=== PATIENT | female | born 1975 | race Caucasian/White ===

== ENCOUNTER 2020-09-16 12:35 | Inpatient (IN) | payer OTHER, SELFPAY ==
[2020-09-16] VITALS (24 sets, daily range): BP systolic 87–132; BP diastolic 53–87; PULSE 88–113; RESP 16–24; TEMP 36.7–38; O2SAT 78–100; BMI 22.0
--- NOTE | ~2020-09-16 | XR_ITS ---
EXAMINATION: XR chest 2V DATE: 09/16/2020 17:06 INDICATION: Fever. Low abdominal pain. TECHNIQUE: Frontal and lateral views of the chest were obtained. COMPARISON: CT abdomen and pelvis 09/16/2020 FINDINGS: The chest demonstrates clear lungs without pneumonia, pleural effusion, or pneumothorax. Th e heart size is normal. IMPRESSION: 1. No acute cardiopulmonary disease. Reviewed, dictated and finalized at location A.
--- NOTE | ~2020-09-16 | CT_ITS ---
EXAMINATION: CT abdomen pelvis wo/w con DATE: 09/17/2020 14:14 INDICATION: Left kidney mass. Left flank pain. TECHNIQUE: Computed tomography (CT) of the abdomen and pelvis was performed without and with 100 mL O mnipaque 350 intravenous contrast. Automated exposure control and iterative reconstruction technique were employed. The dose-length product was 406.51 mGy-cm. COMPARISON: CT abdomen and pelvis 09/16/2020 FINDINGS: The visualized portions of the lung bases demonstrate mild atelectasis. No pleural effusion . The heart size is normal. No pericardial effusion. The liver, gallbladder, spleen, pancreas, and ad renal glands are normal. There are simple cysts in the kidneys measuring up to 19 mm on the left. The re are 3 mm and 2 mm stones in left kidney. There is a 2.0 cm cystic mass in left kidney with hypoenh ancing margin and adjacent fat stranding, consistent with an abscess. There are no dilated loops of b owel. The appendix is normal. There is trace pelvic ascites. There are no pathologically enlarged lym ph nodes. There is mild lumbar spondylosis. IMPRESSION: 1. 2.0 cm left kidney abscess. 2. Small nonobstructing left kidney stones. Reviewed, dictated and finalized at location A.
--- NOTE | ~2020-09-16 | US_ITS ---
EXAMINATION: US venous doppler UE RT DATE: 09/16/2020 15:53 INDICATION: Right upper limb swelling. TECHNIQUE: Grayscale ultrasound images without and with compression and Doppler ultrasound images of the right upper extremity veins were obtained. COMPARISON: None. FINDINGS: The visualized portions of the right internal jugular vein, subclavian vein, axillary vein, brachial veins, basilic vein, radial vein, and ulnar vein are patent. There is thrombus in the right cephalic vein. IMPRESSION: 1. No deep venous thrombosis. 2. Thrombus in the right cephalic vein, which is a superficial vein. Reviewed, dictated and finalized at location A.
--- NOTE | ~2020-09-16 | CT_ITS ---
EXAMINATION: CT abdomen pelvis w con DATE: 09/16/2020 16:09 INDICATION: Left flank pain. TECHNIQUE: Computed tomography (CT) of the abdomen and pelvis was performed with 100 mL Omnipaque 350 intravenous contrast. Automated exposure control and iterative reconstruction technique were employe d. The dose-length product was 296.76 mGy-cm. COMPARISON: None. FINDINGS: The visualized portions of the lung bases demonstrate mild atelectasis. No pleural effusion . The heart size is normal. No pericardial effusion. The liver, gallbladder, spleen, pancreas, and ad renal glands are normal. There are cysts in the kidneys measuring up to 19 mm on the left. There is f at stranding around a 19 mm mass in left kidney. There is a 2 mm stone in left kidney. There are no d ilated loops of bowel. The appendix is normal. There are no pathologically enlarged lymph nodes. Ther e is no free intraperitoneal fluid. There is mild lumbar spondylosis. IMPRESSION: 1. Fat stranding around a 19 mm mass of left kidney, likely a ruptured hemorrhagic cyst. Abdomen CT w ithout and with contrast is recommended to exclude neoplasm. 2. 2 mm nonobstructing left kidney stone. Reviewed, dictated and finalized at location A. IMPRESSION: 1. Fat stranding around a 19 mm mass of left kidney, likely a ruptured hemorrha gic cyst. Abdomen CT without and with contrast is recommended to exclude neopla sm. 2. 2 mm nonobstructing left kidney stone.
[2020-09-16 13:07] LABS: Basophils Percent Auto 0.2 % (0.2-1.2); Eosinophils Absolute Auto 0.1 K/mm3 (0-0.3); Eosinophils Percent Auto 1.2 % (0-4.4); Hematocrit 38.5 % (37.0-47.0); Hemoglobin 13.1 g/dL (12.0-15.0); Immature Granulocyte Absolute 0.04 K/mm3 (0.00-0.031); Immature Granulocyte Percent A 0.3 % (0-0.5); Lymphocytes Percent Auto 16.3 % (18.3-44.2); Mean Corpuscular Hemoglobin 31.2 pg (26-34); Mean Corpuscular Volume 91.7 fl (80-100); Mean Platelet Volume 9.3 fl (7.4-10.4); Monocytes Absolute Auto 0.9 K/mm3 (0.1-0.6); Neutrophils Absolute Auto 8.6 K/mm3 (1.3-6.7); Platelet Count Result 336 k/mm3 (150-375); White Blood Count 11.7 K/mm3 (4.5-10.0)
[2020-09-16 13:17] LABS: Anion Gap 10 mmol/L (8-16); Blood Urea Nitrogen 8 mg/dL (7-17); Calcium 9.2 mg/dL (8.4-10.2); Carbon Dioxide 28 mmol/L (22-30); Chloride 101 mmol/L (98-107); Estimated CRCL calculation 82 ml/min; Estimated Glomerular Filt Rate > 60; Glucose 108 mg/dL (65-105); Potassium 3.1 mmol/L (3.4-5.0); Sodium 139 mmol/L (137-145)
[2020-09-16 13:26] LABS: Add Urine Microscopic? YES; Appearance Urine Clear (Clear); Bilirubin Urine Negative (Negative); Blood Urine Negative (Negative); Color Urine Yellow (Yellow); Glucose Urine UA Negative (Negative); Ketones Urine Negative (Negative); Leukocyte Esterase Ur Trace LEU/UL (Negative); Mucus Urine Heavy /lpf; Nitrate Urine Negative (Negative); Protein Urine 1+ mg/dL (Negative); Squamous Epithelial Cell Urine Few /hpf (Few); WBC Urine 21-30 /hpf
--- NOTE | 2020-09-16 14:59 | ED.ABDPAIN ---
HPI - Abdominal Pain General Chief Complaint: Abdominal Pain Stated Complaint: Left Flank Pain, Right Arm pain Time Seen by Provider: 09/16/20 14:59 Source: patient Mode of arrival: ambulatory Limitations: no limitations History of Present Illness HPI narrative: Patient is a 45-year-old female who presents for evaluation of fever, general malaise. Patient also reporting abdominal pain, nausea and vomiting over the past 48 hours. Reporting pain in the lower left abdomen with radiation to the left flank. She has a history of nephrolithiasis but has never required any surgical procedures or stenting. Patient also states she has had low-grade fever, dysuria as well as constipation. No hematuria. She denies abdominal distention. Denies any chest pain, cough or shortness of breath. Patient also states that she used methamphetamine at a democrat a few nights ago, it was injected with a clean needle into her right arm, patient does have some swelling, redness and pain in that right upper extremity. Denies history of other drug use. Related Data Home Medications Medication Instructions Recorded Confirmed acyclovir 09/16/20 alprazolam 09/16/20 hydroxyzine HCl 09/16/20 Allergies Allergy/AdvReac Type Severity Reaction Status Date / Time No Known Allergies Allergy Verified 09/16/20 14:59 Review of Systems Review of Systems: Narrative: CONSTITUTIONAL: Reports fever EYES: Denies visual changes, redness, or discharge. ENT: Denies rhinorrhea, congestion, sore throat, or otalgia. CARDIOVASCULAR: Denies chest pain, palpitations, or edema. RESPIRATORY: Denies cough or dyspnea. GASTROINTESTINAL: Reports left-sided abdominal pain, nausea, vomiting and constipation GENITOURINARY: Reports dysuria SKIN: Reports swelling and redness to right upper extremity MUSCULOSKELETAL: Denies back pain, joint pain, or myalgia. NEUROLOGIC: Denies headache, numbness, or weakness. PSYCHIATRIC: History of anxiety although she states this has been well controlled, recently discontinued her Xanax [facility] Social History Social History (Updated 09/16/20 @ 15:31 by Ivanna Patterson MD) Smoking status: Current some day smoker Tobacco type: cigarettes and e-cigarettes/vaping Alcohol intake: current Substance use: current Substance use type: amphetamines Gender identity (if verbalized by the patient): Female Exam Narrative: Exam Narrative: GENERAL: Awake, alert, conversant HEAD: Normocephalic, atraumatic. EYES: PERRLA and EOMI. ENT: Nares clear, no rhinorrhea or epistaxis. Mucous membranes moist. NECK: Supple. CHEST: No respiratory distress, breathing even and non labored HEART: Tachycardic rate, sinus rhythm ABDOMEN:Non distended, mild left lower quadrant tenderness, positive left flank tenderness EXTREMITIES: Normal range of motion. No edema. SKIN: Warm, dry, right upper extremity induration, erythema just proximal to the right antecubital fossa, nonfluctuant, nondraining, puncture jennifer present, no ecchymoses. Neurovascularly intact. Radial pulse 2+. Intact sensation median, ulnar, radial nerve distribution. NEURO:No focal deficits. Alert and oriented x3 Course Vital Signs Vital signs: Vital Signs Temperature 38.0 C H 09/16/20 12:56 Pulse Rate 113 H 09/16/20 12:56 Respiratory Rate 18 09/16/20 12:56 Blood Pressure 132/87 09/16/20 12:56 Pulse Oximetry 100 09/16/20 12:56 Temperature 37.5 C 09/16/20 16:27 Pulse Rate 99 09/16/20 17:45 Respiratory Rate 17 09/16/20 17:45 Blood Pressure 104/77 09/16/20 16:46 Pulse Oximetry 100 09/16/20 17:45 MDM - Abdominal Pain MDM Narrative Medical decision making narrative: Patient is a 45-year-old female who presented for evaluation of left abdominal pain, left flank pain, dysuria, as well as redness to an injection site in the right upper extremity. At the time of assessment, patient is tachycardic and febrile. Given concern for sepsis, IV access was obtained a
--- NOTE | 2020-09-16 15:00 | ECG_ITS ---
Measurements Intervals Hartman Rate: 99 P: 68 MI: 119 QRS: 3 QRSD: 99 T: 66 QT: 348 QTc: 447 Interpretive Statements SINUS RHYTHM WITH SHORT MI INTERVAL POSSIBLE LEFT ATRIAL ENLARGEMENT INCOMPLETE RIGHT BUNDLE BRANCH BLOCK BASELINE ARTIFACT- I, III, AVL BORDERLINE ECG Electronically Signed On 09-16-2020 19:30:15 CDT by Artie Tatum D.O.
[2020-09-16] MEDS: SODIUM CHLORIDE 0.9% IV 1,800 ML/1,800 ML ML 999 ML IV CONT (15:21)
[2020-09-16 15:40] LABS: Lactic Acid Reflex 1.3 mmol/L (0.7-2.1)
[2020-09-16 17:22] LABS: Alanine Aminotransferase 22 U/L (4-35); Albumin Level 4.3 g/dL (3.5-5.1); Alkaline Phosphatase 94 U/L (38-126); Aspartate Amino Transferase 26 U/L (14-36); Bilirubin,Total 0.4 mg/dL (0.2-1.3); Lipase 35 U/L (23-300)
[2020-09-16] MEDS: oxyCODONE/ACETAMINOPHEN (*CRX) 5-325 MG TABLET 1 TABLET PO (17:31)
--- NOTE | 2020-09-16 20:00 | PM.IMHP ---
H&P: HPI History of Present Illness Date/Time: 09/16/20 20:00 Chief Complaint: Abdominal pain. Narrative: This is a 45-year-old female who suffers from anxiety presented to the emergency department earlier today via private vehicle from home for evaluation pain. Over the past couple of days she has had a fairly constant, throbbing pain on the left side of her abdomen radiating to the flank and mid left back. She gives no aggravating or alleviating factors with regards to the pain. She has never had similar symptoms in the past but she is aware of a small stone in her left kidney which was noted incidentally on imaging a couple years go. Initially she thought perhaps the pain was related to the kidney stone as she was having dysuria and hematuria as well. Other associated symptoms include nausea, couple of episodes of emesis, and mild abdominal distension which she attributes to constipation. A CT of the abdomen and pelvis showed fat stranding around a with 19 millimeter mass of the left kidney, felt to be due to a ruptured hemorrhagic cyst however infection or neoplasm is not excluded. Radiologist recommends repeat CT of the abdomen and pelvis tomorrow with and without contrast for better look at the area and she is being admitted in this setting. She has had some sweats but no documented fever. No chest pain or shortness of breath. No history of gallbladder disease or pancreatitis. No history of abdominal surgery. no history of polycystic kidney disease. Father did have renal cancer. Review of Systems Review of Systems: Narrative: Twelve systems were reviewed with pertinent positives and negatives as per HPI. The patient suffers from anxiety and ran out of her Xanax about a week ago. Since that time she has had nausea and increasing anxiety which she thought was due to Xanax withdrawal. One of her acquaintances encouraged her to try methamphetamine at a green party to help ease her symptoms, which she reluctantly did. The amphetamines made her much more anxious and she has had swelling, erythema, and a knot at the side of the injection since that time. Ultrasound today shows superficial phlebitis. Patient reports that the needle was clean. She does not have a history of IV drug use and that was the 1st and last time she will ever use it. She used cocaine recreationally several years ago and around that time she was found to have a cardiomyopathy which may have been related to the cocaine use or of cardiomyopathy. Most recent echocardiogram was reportedly unremarkable. She denies orthopnea, PND, and lower extremity edema. No chest pain or shortness of breath. Except as documented, all other systems were reviewed and are negative. [facility] Past Medical History Medical History (Updated 09/16/20 @ 20:27 by Ruby Ramirez PA-C) Anxiety Cardiomyopathy Unclear etiology, possibly or due to history of cocaine use. Echocardiogram in 2020 was completely normal, per patient report. Depression Mitral valve prolapse Nephrolithiasis Surgical History Surgical History (Updated 09/16/20 @ 20:19 by Ruby Ramirez PA-C) History of endometrial ablation History of salpingectomy History of tonsillectomy and adenoidectomy Family History Family History (Updated 09/16/20 @ 20:21 by Ruby Ramirez PA-C) Father Amyotrophic lateral sclerosis Cancer of kidney Social History Social History (Updated 09/16/20 @ 20:23 by Ruby Ramirez PA-C) Social History: The patient is currently staying with her daughter in [place]. Not employed at this time. Social smoker, occasionally vapes. Consumes alcohol in moderation. History of recreational cocaine use. She designates her sister, Ayleen Lopez, as her surrogate decision maker. Code status: Full code. Meds Home Medications and Allergies Home Medications Medication Instructions Recorded Confirmed Type acyclovir 09/16/20 History hydroxyzine HCl 09/16/20 His
--- NOTE | 2020-09-16 20:38 | ADMGEN ---
This patient, Edith Frazier, was admitted to [facility] Room 310-01. Patient/family oriented to hospital policies and general routines including ID bracelet, bed and alarms, visiting hours, pain management, procedures, bathroom and other care routines, personal items, smoking policy, room service/diet, and visiting hours. Information on how to activate the Rapid Response Team has been discussed. Patient/Family are encouraged to report perceived risks to care and to ask questions if they do not understand what they are told or what they should do.
[2020-09-17] MEDS: SODIUM CHLORIDE 0.9% IV 1,000 ML 75 ML IV CONT (00:21)
[2020-09-17] MEDS: polyethylene glycoL 3350 17 GM POWD.PACK PO (00:22)
[2020-09-17] MEDS: HYDROcodone/acetaminophen (*CRX) 5-325 MG TABLET 1 TAB PO ×2 (00:53→10:08)
[2020-09-17 06:00] VITALS: BP 123/66; PULSE 77; RESP 16; TEMP 36.9; O2SAT 100
[2020-09-17 06:44] LABS: Hematocrit 32.8 % (37.0-47.0); Hemoglobin 11.2 g/dL (12.0-15.0); Mean Corpuscular HGB Conc 34.1 g/dl (32-36); Mean Corpuscular Volume 90.9 fl (80-100); Mean Platelet Volume 9.9 fl (7.4-10.4); Platelet Count Result 300 k/mm3 (150-375); Red Blood Count 3.61 M/mm3 (4.2-5.4); Red Cell Distribution Width 12.9 % (11.5-14.5); White Blood Count 10.6 K/mm3 (4.5-10.0)
[2020-09-17 07:21] LABS: Alanine Aminotransferase 17 U/L (4-35); Albumin Level 3.4 g/dL (3.5-5.1); Alkaline Phosphatase 71 U/L (38-126); Anion Gap 7 mmol/L (8-16); Aspartate Amino Transferase 19 U/L (14-36); Bilirubin,Total 0.3 mg/dL (0.2-1.3); Blood Urea Nitrogen 6 mg/dL (7-17); CRP 16.3 mg/dL (<1.0); Calcium 8.4 mg/dL (8.4-10.2); Carbon Dioxide 23 mmol/L (22-30); Chloride 108 mmol/L (98-107); Estimated CRCL calculation 113 ml/min; Estimated Glomerular Filt Rate > 60; Glucose 100 mg/dL (65-105); Potassium 3.1 mmol/L (3.4-5.0); Sodium 138 mmol/L (137-145)
[2020-09-17] MEDS: ACYCLOVIR 400 MG TABLET PO (10:05)
[2020-09-17] MEDS: SERTRALINE HCL 50 MG TABLET 100 MG PO (10:05)
--- NOTE | 2020-09-17 12:28 | PM.IMPN ---
Progress Note: A&P Assessment and Plan (1) Acute left flank pain: Code(s): R10.9 - Unspecified abdominal pain Status: Acute Assessment and Plan: Most likely related to the abnormal finding of the left kidney on CT, possible ruptured hemorrhagic cyst though infection/abscess cannot be ruled out. Planning for CT a/p with and without contrast this afternoon. Will await results. Analgesics available as needed. Continue empiric antibiotics, pending urine culture. (2) Abnormal urinalysis: Code(s): R82.90 - Unspecified abnormal findings in urine Status: Acute Assessment and Plan: She reports dark urine with foul odor Ceftriaxone for possible UTI, pending urine culture. (3) Abnormal radiologic findings on diagnostic imaging of left kidney: Code(s): R93.422 - Abnormal radiologic findings on diagnostic imaging of left kidney Status: Acute Assessment and Plan: CT of the abdomen pelvis shows fat stranding around the left kidney which may be a ruptured hemorrhagic cyst though neoplasm or infection cannot be ruled out. Repeat CT a/p as above. (4) Renal cyst: Code(s): N28.1 - Cyst of kidney, acquired Status: Acute Assessment and Plan: Bilateral cysts noted on imaging today. (5) Anxiety: Code(s): F41.9 - Anxiety disorder, unspecified Status: Acute Assessment and Plan: Mood is stable. Continue alprazolam. (6) Superficial phlebitis of arm: Code(s): I80.8 - Phlebitis and thrombophlebitis of other sites Status: Acute Assessment and Plan: Thrombus noted in right cephalic vein. Encourage elevation of the extremity and application of warm compresses. (7) Constipation: Code(s): K59.00 - Constipation, unspecified Status: Acute Assessment and Plan: Continue MiraLax and Colace. (8) Nephrolithiasis: Code(s): N20.0 - Calculus of kidney Status: Acute Assessment and Plan: 2 millimeter left kidney stone noted on imaging. Not the cause of her pain. Subjective Date/time seen: 09/17/20 12:28 Interval history: Date of service: 09/17/20 Edith Frazier is a 45 year old female with a history of anxiety, depression, cardiomyopathy, mitral valve prolapse, and nephrolithiasis who is seen in follow up for left flank pain with abnormal CT scan findings of the left kidney. She is feeling somewhat better today but still not great. Her left flank pain is rated 6/10, but will creep up to 8/10 occasionally. She denies dysuria hematuria but endorses dark urine with a foul odor. She has not had a bowel movement in nearly a week. She has some lower abdominal pain but denies cramping or bloating. She has not eaten anything today as she is NPO for her CT scan. She complains of right arm soreness in the antecubital fossa. Denies increased redness or swelling. Denies numbness or tingling of the extremities. Reports occasional nausea, no vomiting. No SOB, cough, chest pain. Mood is stable and she denies anxiety or depression. Review of Systems Review of Systems: All systems reviewed & are unremarkable except as noted in HPI and below Exam Narrative: Exam Narrative: Ms. Frazier is a well-nourished, well-appearing 45-year-old female who is lying semi-recumbent in bed. She appears comfortable and is in NARD. Neuro: awake, alert and oriented x4, speech clear, no focal neuro deficits noted HEENMT: normocephalic, atraumatic, EOMI, sclerae anicteric, moist oral mucosa Neck: supple, no lymphadenopathy Respiratory: clear to auscultation bilaterally, nonlabored breathing Cardio: regular rate, regular rhythm with S1-S2 Abdomen: nondistended, normoactive bowel sounds, soft, nontender to palpation, no rigidity or guarding : left flank pain, left CVA tenderness Extremities: no edema, erythema, or tenderness to palpation, DP pulses 2+ bilaterally Skin: no rashes or lesions, wa
[2020-09-17] MEDS: MORPHINE SULFATE (*CRX) 4 MG/ML INJ IV PUSH (12:54)
[2020-09-17 14:00] VITALS: BP 138/83; PULSE 82; RESP 16; TEMP 36.6; O2SAT 100
[2020-09-17] MEDS: POTASSIUM CHLORIDE 20 MEQ TABLET 40 MEQ PO (17:20)
[2020-09-17] MEDS: DOCUSATE SODIUM 100 MG CAPSULE PO (20:34)
[2020-09-17] MEDS: ALPRAZolam (*CRX) 0.5 MG TABLET PO (20:45)
[2020-09-17 22:00] VITALS: BP 127/75; PULSE 84; RESP 18; TEMP 36.5; O2SAT 100
[2020-09-18] VITALS (11 sets, daily range): BP systolic 84–116; BP diastolic 51–97; PULSE 78–97; RESP 16–18; TEMP 36.2–37.2; O2SAT 96–100
[2020-09-18] MEDS: HYDROcodone/acetaminophen (*CRX) 5-325 MG TABLET 1 TAB PO ×2 (05:31→16:50)
[2020-09-18 06:15] LABS: Hematocrit 34.5 % (37.0-47.0); Hemoglobin 11.6 g/dL (12.0-15.0); Mean Corpuscular HGB Conc 33.6 g/dl (32-36); Mean Corpuscular Volume 92.2 fl (80-100); Mean Platelet Volume 9.6 fl (7.4-10.4); Platelet Count Result 353 k/mm3 (150-375); Red Blood Count 3.74 M/mm3 (4.2-5.4); Red Cell Distribution Width 12.9 % (11.5-14.5); White Blood Count 10.1 K/mm3 (4.5-10.0)
--- NOTE | 2020-09-18 06:38 | WPDURCON ---
Assessment and Plan Assessment and plan (1) Abnormal radiologic findings on diagnostic imaging of left kidney: Code(s): R93.422 - Abnormal radiologic findings on diagnostic imaging of left kidney Status: Acute (2) Renal abscess, left: Code(s): N15.1 - Renal and perinephric abscess Status: Acute Assessment and Plan: Presentation and CT imaging most consistent with a small left renal abscess. Her urinalysis on admission appeared infected but urine culture shown no growth. It is possible the urine cultures represents a false negative (particularly given the abnormal urinalysis) and it is also possible that this abscess may have started with her recent lower urinary tract infection she reports approximately 6-8 weeks ago. Given her absence of fever and improving leukocytosis I see no indication for percutaneous drainage of this area in her left kidney. Recommend continuing broad-spectrum antibiotics, pending completion blood cultures. If those are negative I would favor a switch to broad-spectrum oral antibiotics (such as a quinolone or cefdinir). Will plan follow-up reimaging in 3-4 weeks. Urology Consult Note HPI Date Seen: 09/18/20 Requesting Physician: Maris Smith PA-C Primary Care Provider: UNKNOWN,DOCTOR Consult Narrative Narrative: Edith Frazier is a 45 year old female with a history of recurrent lower urinary tract infections but without known prior episodes of pyelonephritis. She was admitted through the emergency department after presenting with several day history of constant throbbing pain in her left kidney. She does report having a lower urinary tract infection approximately 6 weeks ago that she felt was treated in adequately. At that time she had had symptoms typical acute cystitis, including urinary frequency urgency and dysuria. Throughout the course of this she denies fever or gross hematuria. CT scan imaging both with and without contrast show multiple small bilateral renal cyst with inflammatory changes around a 2 cm fluid-filled area in the mid pole left kidney. This seems to be most consistent with a 2cm left renal abscess. Review of Systems Cardiovascular: Cardiovascular: Denies chest pain, Denies lightheadedness, Denies palpitations and Denies dyspnea Respiratory: Respiratory: Denies dyspnea Gastrointestinal: Gastrointestinal: Denies diarrhea, Denies nausea and Denies vomiting Genitourinary: Genitourinary: Denies hematuria and Denies dysuria Endocrine: Endocrine: Denies palpitations [facility] Past Medical History Medical History Anxiety Cardiomyopathy Unclear etiology, possibly or due to history of cocaine use. Echocardiogram in 2020 was completely normal, per patient report. Depression Mitral valve prolapse Nephrolithiasis Surgical History Surgical History History of endometrial ablation History of salpingectomy History of tonsillectomy and adenoidectomy Family History Family History Father Amyotrophic lateral sclerosis Cancer of kidney Social History Social History Social History: The patient is currently staying with her daughter in [place]. Not employed at this time. Social smoker, occasionally vapes. Consumes alcohol in moderation. History of recreational cocaine use. She designates her sister, Ayleen Lopez, as her surrogate decision maker. Code status: Full code. Drinks per week: 1 Spiritual care concerns: No Meds Home Medications and Allergies Home Medications Medication Instructions Recorded Confirmed Type acyclovir 1 mg PO DAILY 09/16/20 09/16/20 History hydroxyzine HCl 1 mg PO TID PRN 09/16/20 09/16/20 History sertraline [Zoloft] 100 mg PO DAILY 09/16/20 09/16/20 History Aller
[2020-09-18 06:51] LABS: Anion Gap 8 mmol/L (8-16); Blood Urea Nitrogen 4 mg/dL (7-17); Calcium 8.9 mg/dL (8.4-10.2); Carbon Dioxide 26 mmol/L (22-30); Chloride 104 mmol/L (98-107); Estimated CRCL calculation 96 ml/min; Estimated Glomerular Filt Rate > 60; Glucose 100 mg/dL (65-105); Potassium 3.6 mmol/L (3.4-5.0); Sodium 138 mmol/L (137-145)
[2020-09-18 07:09] LABS: CRP 15.6 mg/dL (<1.0)
[2020-09-18] MEDS: polyethylene glycoL 3350 17 GM POWD.PACK PO (08:28)
[2020-09-18] MEDS: DOCUSATE SODIUM 100 MG CAPSULE PO ×2 (08:29→19:52)
[2020-09-18] MEDS: ACYCLOVIR 400 MG TABLET PO (08:29)
[2020-09-18] MEDS: SERTRALINE HCL 50 MG TABLET 100 MG PO (08:29)
--- NOTE | 2020-09-18 09:19 | PM.IMPN ---
Progress Note: A&P Assessment and Plan (1) Renal abscess, left: Code(s): N15.1 - Renal and perinephric abscess Status: Acute Assessment and Plan: CT of the abdomen pelvis shows fat stranding around the left kidney which was followed up with contrast CT that demonstrated 2.0 cm left kidney abscess. this is the cause of her left flank pain. Cause of abscess may have been due to untreated lower urinary tract infection (admitted she stopped taking her antibiotics when she began feeling better) approximately 6 weeks ago. continue broad-spectrum IV vancomycin and Zosyn while awaiting results of blood cultures Appreciate urology consult. At this time, no indication for percutaneous abscess drainage as she is afebrile with improved leukocytosis and no other signs/symptoms to suggest worsening infection. Plan to repeat imaging in 3-4 weeks per urology recommendations. Analgesics available as needed (2) Abnormal urinalysis: Code(s): R82.90 - Unspecified abnormal findings in urine Status: Acute Assessment and Plan: She reports dark urine with foul odor. Urine culture with growth of mixed sloan, suggestive of contamination. continue broad-spectrum IV antibiotics as above await results of blood cultures (3) Anxiety: Code(s): F41.9 - Anxiety disorder, unspecified Status: Acute Assessment and Plan: Mood is stable. Continue alprazolam BID prn (4) Superficial phlebitis of arm: Code(s): I80.8 - Phlebitis and thrombophlebitis of other sites Status: Acute Assessment and Plan: Thrombus noted in right cephalic vein. Encourage elevation of the extremity and application of warm compresses. (5) Constipation: Code(s): K59.00 - Constipation, unspecified Status: Acute Assessment and Plan: Chronic issue, she reports due to poor diet. Likely worsened due to narcotic pain medication Continue MiraLax and Colace. Dulcolax suppository prn Limit narcotics and encourage ambulation (6) Nephrolithiasis: Code(s): N20.0 - Calculus of kidney Status: Acute Assessment and Plan: 2 mm and 3 mm nonobstructing left kidney stone noted on imaging. Subjective Date/time seen: 09/18/20 09:19 Interval history: Date of service: 09/18/20 Edith Frazier is a 45 year old female with a history of anxiety, depression, cardiomyopathy, mitral valve prolapse, and nephrolithiasis who is seen in follow up for left flank pain with abnormal CT scan findings of the left kidney.She is doing okay today. Her left flank pain is the bit better. she has improvement with and she is 6. Currently rates her pain as 6/10. She endorses dark, malodorous urine without dysuria or hematuria. She has been feeling a little bit lightheaded today. She notes her appetite is improving and she was able to tolerate her breakfast. Denies nausea or vomiting. No fevers or chills. Has occasional nonproductive cough. No chest pain or shortness of breath. Still has not had a bowel movement. Has mild abdominal discomfort but denies cramping or bloating. Review of Systems Review of Systems: All systems reviewed & are unremarkable except as noted in HPI and below Exam Narrative: Exam Narrative: Ms. Frazier is a well-nourished, well-appearing 45-year-old female who is lying semi-recumbent in bed. She appears comfortable and is in NARD. Neuro: awake, alert and oriented x4, speech clear, no focal neuro deficits noted HEENMT: normocephalic, atraumatic, EOMI, sclerae anicteric, moist oral mucosa Neck: supple, no lymphadenopathy Respiratory: clear to auscultation bilaterally, nonlabored breathing Cardio: regular rate, regular rhythm with S1-S2 Abdomen: nondistended, normoactive bowel sounds, soft, nontender to palpation, no rigidity or guarding : left flank pain, left CVA tenderness Extremities: right antecubital fossa with small area of eryt
[2020-09-18] MEDS: SODIUM CHLORIDE 0.9% IV 500 ML IV CONT (10:19)
[2020-09-18] MEDS: SODIUM CHLORIDE 0.9% IV 1,000 ML 75 ML IV CONT (14:06)
[2020-09-19] VITALS: BP 99/74
[2020-09-19 01:51] VITALS: BP 104/68
[2020-09-19 04:00] VITALS: BP 115/72
[2020-09-19] MEDS: SODIUM CHLORIDE 0.9% IV 1,000 ML 75 ML IV CONT (04:16)
[2020-09-19] MEDS: HYDROcodone/acetaminophen (*CRX) 5-325 MG TABLET 1 TAB PO (04:17)
[2020-09-19 06:00] VITALS: BP 96/61; PULSE 60; RESP 18; TEMP 36.2; O2SAT 97
[2020-09-19 06:20] LABS: Hematocrit 32.8 % (37.0-47.0); Hemoglobin 10.9 g/dL (12.0-15.0); Mean Corpuscular HGB Conc 33.2 g/dl (32-36); Mean Corpuscular Hemoglobin 30.5 pg (26-34); Mean Corpuscular Volume 91.9 fl (80-100); Mean Platelet Volume 9.4 fl (7.4-10.4); Platelet Count Result 355 k/mm3 (150-375); Red Blood Count 3.57 M/mm3 (4.2-5.4); Red Cell Distribution Width 12.7 % (11.5-14.5); White Blood Count 6.8 K/mm3 (4.5-10.0)
[2020-09-19 06:41] LABS: Anion Gap 9 mmol/L (8-16); Blood Urea Nitrogen 4 mg/dL (7-17); Calcium 8.6 mg/dL (8.4-10.2); Carbon Dioxide 23 mmol/L (22-30); Chloride 107 mmol/L (98-107); Estimated CRCL calculation 96 ml/min; Estimated Glomerular Filt Rate > 60; Glucose 94 mg/dL (65-105); Potassium 3.6 mmol/L (3.4-5.0); Sodium 139 mmol/L (137-145)
--- NOTE | 2020-09-19 07:02 | WPDUROPN2 ---
Progress Note: A&P Assessment and Plan (1) Renal abscess, left: Code(s): N15.1 - Renal and perinephric abscess Status: Acute Assessment and Plan: Improved pain and serum WBC. Urine and blood cultures remain neg. Home on Cipro or Levaquin x2 weeks acceptable to me. Needs repeat CT scan 3-4 weeks. Subjective Subjective Date/Time Seen: 09/19/20 07:02 Slightly improved abd/flank pain Review of Systems Cardiovascular: Cardiovascular: Denies chest pain, Denies lightheadedness, Denies palpitations and Denies dyspnea Respiratory: Respiratory: Denies dyspnea Gastrointestinal: Gastrointestinal: Denies diarrhea, Denies nausea and Denies vomiting Genitourinary: Genitourinary: Denies hematuria and Denies dysuria Endocrine: Endocrine: Denies palpitations Exam Const: General: no acute distress Resp: Effort & Inspection: normal respiratory effort GI: Inspection: non-distended GI Palp: No abdominal tenderness and No Guarding due to palpation present (GI) Auscultation: normal bowel sounds Objective Data Vital Signs Vital Signs: Vital Signs - 24 hr 09/18/20 09:18 09/18/20 09:42 09/18/20 11:40 Temperature Pulse Rate 78 90 Respiratory Rate Blood Pressure 95/68 L 87/51 L 101/64 Pulse Oximetry 09/18/20 11:41 09/18/20 11:42 09/18/20 14:00 Temperature 97.2 F L Pulse Rate 86 Respiratory Rate 16 Blood Pressure 107/64 84/62 L 103/60 Pulse Oximetry 100 09/18/20 16:00 09/18/20 18:00 09/18/20 20:00 Temperature Pulse Rate 83 97 81 Respiratory Rate 18 Blood Pressure 93/73 L 91/57 L Pulse Oximetry 96 09/18/20 22:00 09/19/20 00:00 09/19/20 01:51 Temperature 97.5 F L Pulse Rate 81 Respiratory Rate 18 Blood Pressure 95/75 L 99/74 L 104/68 Pulse Oximetry 96 09/19/20 04:00 09/19/20 06:00 Temperature 97.2 F L Pulse Rate 60 Respiratory Rate 18 Blood Pressure 115/72 96/61 L Pulse Oximetry 97 Intake/Output Intake/Output: Intake & Output 09/16/20 09/17/20 09/18/20 09/19/20 23:59 23:59 23:59 23:59 Intake Total 2100 1820 3080 1800 Output Total 1800 1999 Balance 2100 20 1080 1800 Meds/Results Medications: Active Medications Generic Name Dose Route Start Last Admin Trade Name Freq PRN Reason Stop Dose Admin Acetaminophen 650 mg 09/17/20 17:13 Acetaminophen 325 Mg Tablet PO Q4H PRN Pain 1-5 Or Fever Hydrocodone Bitart/Acetaminophen 1 tab 09/17/20 17:13 09/19/20 04:17 Hydrocodone/Acetaminophen (*Crx) 5-325 Mg Tablet PO 1 tab Q6H PRN Administration Pain Rated 6-10 Acyclovir 400 mg 09/17/20 09:00 09/18/20 08:29 Acyclovir 400 Mg Tablet PO 400 mg DAILY FILIPPO Administration Alprazolam 0.5 mg 09/17/20 13:00 09/17/20 20:45 Alprazolam (*Crx) 0.5 Mg Tablet PO 0.5 mg BID PRN Administration Anxiety Bisacodyl 10 mg 09/18/20 09:34 Bisacodyl 10 Mg Suppository RECTAL QAM PRN Constipation Docusate Sodium 100 mg 09/17/20 21:00 09/18/20 19:52 Docusate Sodium 100 Mg Capsule PO 100 mg Q12HR FILIPPO Administration Piperacillin/Tazobactam/Dextrose 3.375 gm in 50 mls @ 100 mls/hr 09/17/20 18:00 09/19/20 06:31 Zosyn 3.375 Gm/D5w 50ml Pm IVPB 100 mls/hr Q6HR FILIPPO Administration Vancomycin HCl 1,000 mg in 250 mls @ 250 mls/hr 09/17/20 18:00 09/18/20 18:45 Vancomycin 1,000 Mg/D5w 250 Ml IVPB Infused Q12H FILIPPO Infusion Sodium Chloride 1,000 mls @ 75 mls/hr 09/18/20 12:55 09/19/20 04:16 Normal Saline Iv IV CONT 75 mls/hr .[id number] FILIPPO Administration Morphine Sulfate 1 mg 09/17/20 17:13 Morphine Sulfate (*Crx) 2 Mg/Ml Inj IV PUSH Q6H PRN Breakthrough Pain Ondansetron HCl 4 mg 09/16/20 18:30 Ondansetron Inj 4 Mg/2 Ml Vial IV PUSH Q4H PRN Nausea Polyethylene Glycol 17 gm 09/16/20 20:35 09/18/20 08:28 Polyethylene Glycol 3350 17 Gm Powd.Pack PO 17 gm QAM FILIPPO Administration Sertraline HCl 100 mg 06
[2020-09-19 07:34] LABS: Vancomycin Trough 5.9 ug/mL (10.0-20.0)
[2020-09-19] MEDS: polyethylene glycoL 3350 17 GM POWD.PACK PO (09:39)
[2020-09-19] MEDS: DOCUSATE SODIUM 100 MG CAPSULE PO (09:39)
[2020-09-19] MEDS: SERTRALINE HCL 50 MG TABLET 100 MG PO (09:40)
[2020-09-19] MEDS: ACYCLOVIR 400 MG TABLET PO (09:40)
[2020-09-19] MEDS: ALPRAZolam (*CRX) 0.5 MG TABLET PO (09:44)
[2020-09-19 12:00] VITALS: BP 100/60; BP 100/77; BP 99/69
[2020-09-19 14:00] VITALS: BP 104/70; PULSE 72; RESP 16; TEMP 36.9; O2SAT 100
--- NOTE | 2020-09-19 14:58 | PM.DS ---
DS: Admitting Diagnosis Admitting Diagnosis Admitting Diagnosis: acute left flank pain DS: Discharge Diagnosis Discharge Diagnosis (1) Renal abscess, left: Code(s): N15.1 - Renal and perinephric abscess Status: Acute Assessment and Plan: CT of the abdomen pelvis showed fat stranding around the left kidney which was followed up with contrast CT that demonstrated 2.0 cm left kidney abscess. Cause of abscess may have been due to untreated lower urinary tract infection (admitted she stopped taking her antibiotics when she began feeling better) approximately 6 weeks ago. she was started on IV ceftriaxone and transitioned to broad-spectrum IV vancomycin and Zosyn upon identification of abscess. She was seen in consultation by Urology. Based on clinical findings, no indication for percutaneous abscess drainage as her fever resolved with improved leukocytosis and no other signs/symptoms to suggest worsening infection. she will continue p.o. Levaquin for 2 weeks and obtain repeat CT abdomen/ pelvis with and without contrast in 3-4 weeks per urology recommendations. blood cultures negative to date and final cultures will be monitored. Short course of analgesics provided. (2) Abnormal urinalysis: Code(s): R82.90 - Unspecified abnormal findings in urine Status: Acute Assessment and Plan: She reported dark urine with foul odor. Urine culture with growth of mixed sloan, suggestive of contamination. treated with IV antibiotics above and will continue p.o. Levaquin for 2 weeks (3) Anxiety: Code(s): F41.9 - Anxiety disorder, unspecified Status: Acute Assessment and Plan: Mood remained stable. hold hydroxyzine while taking Levaquin due to concerns for QT prolongation when medications are taken concurrently. (4) Superficial phlebitis of arm: Code(s): I80.8 - Phlebitis and thrombophlebitis of other sites Status: Acute Assessment and Plan: Thrombus noted in right cephalic vein, likely secondary to recent single occurrence of IV amphetamine use. Continue warm compresses and elevation of extremity (5) Constipation: Code(s): K59.00 - Constipation, unspecified Status: Acute Assessment and Plan: Chronic issue, she reports due to poor diet. Likely worsened due to narcotic pain medication. continue [id number] MiraLax and Colace. Limit narcotics. (6) Nephrolithiasis: Code(s): N20.0 - Calculus of kidney Status: Acute Assessment and Plan: 2 mm and 3 mm nonobstructing left kidney stone noted on imaging. DS: Summary Hospital Course Hospital Course: Date of admission: 09/16/2020 date of discharge: 09/19/2020 Edith Frazier is a 45 year old female with a history of anxiety, depression, cardiomyopathy, mitral valve prolapse, and nephrolithiasis who presented to the emergency department on 09/16/2020 with complaints of fever, nausea, vomiting, and left flank pain ongoing for the past 2 days. upon presentation to the emergency department, she was febrile at 38?C, tachycardic at 113, additional vital signs stable, WBC 11.7, additional CBC unremarkable, potassium 3.1 with additional electrolytes stable, lactic 1.3, urinalysis abnormal, venous Doppler showed thrombus in the right cephalic vein, CT abdomen/ pelvis showed fat stranding around 19 mm left kidney mass, and CXR showed no acute cardiopulmonary disease. She was admitted to the hospitalist service for further evaluation and management and was seen in consultation by Urology. please see above for further details. She was treated for left kidney abscess with broad-spectrum IV antibiotics and will continue oral antibiotics at home to complete a 2 week course, at which time she will follow-up with urology and obtain repeat imaging. Her blood pressure remained on the lower end, and it seems this is quite typical for her. She was mildly orthostatic and rehydrated with IV f
== END 2020-09-19 16:11 | disposition home or self-care (01) | DRG 465 ==
LOC: ANHED 19:13 → ANH3MEDSUR 19:41
PROVIDERS: Emergency Medicine; Physician Assistant; Admitting Provider Family Medicine; Emergency Provider Emergency Medicine; Visit Provider Internal Medicine
DX: N20.0 Calculus of kidney (principal); N28.1 Cyst of kidney, acquired; R82.90 Unspecified abnormal findings in urine; T80.1XXA Vascular complications following infusion, transfusion and therapeutic injection, initial encounter; I80.8 Phlebitis and thrombophlebitis of other sites; K59.00 Constipation, unspecified; T40.605A Adverse effect of unspecified narcotics, initial encounter; F41.9 Anxiety disorder, unspecified; F32.9 Major depressive disorder, single episode, unspecified; I34.1 Nonrheumatic mitral (valve) prolapse; I42.9 Cardiomyopathy, unspecified; F17.210 Nicotine dependence, cigarettes, uncomplicated
CPT/HCPCS: 36415; 71046; 74177; 74178; 80048; 80053; 80076; 80202; 81001; 81025; 83605; 83690; 83735; 85025; 85027; 86140; 87040; 87086; 87088; 93005; 93971; 96365; 96366; 96367; 96375; 99285; A9270; G0378; G0379; J0692; J0696; J2270; J2543; J3370; J7030; J7040; Q9967

== ENCOUNTER 2020-10-25 18:12 | Emergency (ER) | payer OTHER, SELFPAY ==
--- NOTE | ~2020-10-25 | XR_ITS ---
EXAMINATION: XR hip LT min 2V DATE: 10/25/2020 18:40 INDICATION: Left hip pain. TECHNIQUE: 3 views of left hip were obtained. COMPARISON: CT abdomen and pelvis 09/17/2020 FINDINGS: Bone alignment is normal. No fracture. Left hip joint space is normal. IMPRESSION: 1. Normal left hip. Reviewed, dictated and finalized at location A. IMPRESSION: 1. Normal left hip.
[2020-10-25 18:23] VITALS: BP 109/78; PULSE 111; RESP 18; TEMP 36.6; O2SAT 100
[2020-10-25 20:13] VITALS: BP 120/90; PULSE 101; RESP 14; O2SAT 100
--- NOTE | 2020-10-25 20:45 | ED.LOWEXIN ---
HPI - Extremity Injury (Lower) General Chief Complaint: Extremity Injury, Lower Stated Complaint: left hip pain Time Seen by Provider: 10/25/20 20:20 Source: patient and family Mode of arrival: ambulatory Limitations: no limitations History of Present Illness HPI Narrative: 45-year-old here with complaints of left hip and low back pain for past few weeks. Patient states that she fell and hit her tailbone. Patient states that she is having tough time walking. MD complaint: hip injury Injury: Left: hip Place: home Severity: moderate Relieving factors: nothing Related Data Home Medications Medication Instructions Recorded Confirmed acyclovir 1 mg PO DAILY 09/16/20 09/16/20 hydroxyzine HCl 1 mg PO TID PRN 09/16/20 09/16/20 sertraline [Zoloft] 100 mg PO DAILY 09/16/20 09/16/20 Allergies Allergy/AdvReac Type Severity Reaction Status Date / Time No Known Allergies Allergy Verified 10/25/20 20:16 Review of Systems Review of Systems: All systems reviewed & are unremarkable except as noted in HPI and below Constitutional: Constitutional: Reports no additional constitutional complaints Eyes: Eyes: Reports no additional eye complaints ENT: Reports system reviewed and no additional complaints, except as documented Cardiovascular: Cardiovascular: Reports no additional cardiovascular complaints Respiratory: Respiratory: Reports no additional respiratory complaints Gastrointestinal: Gastrointestinal: Reports no additional gastrointestinal complaints Musculoskeletal: Musculoskeletal: Reports as per HPI [facility] Past Medical History Medical History Anxiety Cardiomyopathy Unclear etiology, possibly or due to history of cocaine use. Echocardiogram in 2020 was completely normal, per patient report. Depression Mitral valve prolapse Nephrolithiasis Surgical History Surgical History History of endometrial ablation History of salpingectomy History of tonsillectomy and adenoidectomy Family History Family History Father Amyotrophic lateral sclerosis Cancer of kidney Social History Social History Social History: The patient is currently staying with her daughter in [place]. Not employed at this time. Social smoker, occasionally vapes. Consumes alcohol in moderation. History of recreational cocaine use. She designates her sister, Ayleen Lopez, as her surrogate decision maker. Code status: Full code. Drinks per week: 1 Gender identity (if verbalized by the patient): Female Spiritual care concerns: No Course Course Emergency Course: Inform patient about her x-ray findings. There is no obvious trauma noted on the left hip. Advised to follow-up with her primary doctor. I happened to see her in the hospital a week ago for the same. Patient at that time was unhappy with me not giving her narcotics Vital Signs Vital signs: Vital Signs Temperature 36.6 C 10/25/20 18:23 Pulse Rate 111 H 10/25/20 18:23 Respiratory Rate 18 10/25/20 18:23 Blood Pressure 109/78 10/25/20 18:23 Pulse Oximetry 100 10/25/20 18:23 Temperature 36.6 C 10/25/20 18:23 Pulse Rate 101 H 10/25/20 20:13 Respiratory Rate 14 10/25/20 20:13 Blood Pressure 120/90 10/25/20 20:13 Pulse Oximetry 100 10/25/20 20:13 Discharge Plan Discharge Clinical Impression: Hip pain, left Patient Disposition: Home, Self-Care Condition: Stable Instructions: Antibiotic Form, Arthralgia (ED) Additional Instructions: Take pain medications as prescribed Prescriptions: New naproxen sodium [Anaprox DS] 550 mg tablet 550 mg PO BID Qty: 14 RF: 0 No Action acyclovir 400 mg tablet 1 mg PO DAILY RF: 0 hydroxyzine HCl 10 mg tablet 1 mg PO TID PRN (Reason: Anxi
== END 2020-10-25 21:15 | disposition home or self-care (01) ==
LOC: ANHED 21:01
PROVIDERS: Emergency Provider Family Medicine
DX: M25.552 Pain in left hip (principal); F41.9 Anxiety disorder, unspecified; F32.9 Major depressive disorder, single episode, unspecified
CPT/HCPCS: 73502; 99283

== ENCOUNTER 2020-12-06 11:56 | Emergency (ER) | payer OTHER, SELFPAY ==
--- NOTE | ~2020-12-06 | XR_ITS ---
EXAMINATION: [id number] INDICATION: Right-sided chest pain TECHNIQUE: A frontal view of the chest and 3 views of the left ribs were obtained. COMPARISON: 09/16/2020 FINDINGS: The lungs are free of acute opacities. There is no pleural effusion or pneumothorax. The ca rdiomediastinal silhouette is normal. The visualized bones and soft tissues are unremarkable. No disp laced rib fracture is identified. IMPRESSION: 1. No acute cardiopulmonary abnormality or evidence of displaced rib fracture. Reviewed, dictated and finalized at location A.
[2020-12-06 12:02] VITALS: BP 125/94; PULSE 103; RESP 16; TEMP 36.5; O2SAT 100
--- NOTE | 2020-12-06 12:10 | ED.CHESTPAIN ---
HPI - Chest Pain General Chief Complaint: Wound/Laceration Stated Complaint: Chest pain and Knot feeling in Chest Time Seen by Provider: 12/06/20 12:10 Source: patient and RN notes reviewed Mode of arrival: ambulatory Limitations: no limitations History of Present Illness HPI narrative: 45-year-old female presents concern for left anterior chest wall tenderness. Reports 6 days ago she was kicked in the left chest during kickboxing. Reports pain with deep breathing, certain movements. She denies shortness of breath, chest pain at rest. Denies lacerations, abrasions, bruising. Reports mild swelling. She also reports pain at the digit of the left hand. Denies intervention for this pain. MD complaint: other (chest wall pain ) Related Data Home Medications Medication Instructions Recorded Confirmed hydroxyzine HCl 10 mg PO DAILY PRN 09/16/20 12/06/20 sertraline [Zoloft] 150 mg PO DAILY 09/16/20 12/06/20 alprazolam 0.5 mg PO BID 12/06/20 12/06/20 Allergies Allergy/AdvReac Type Severity Reaction Status Date / Time No Known Allergies Allergy Verified 12/06/20 12:12 Review of Systems Review of Systems: CONSTITUTIONAL: Denies malaise, chills, sweats, or fever. CARDIOVASCULAR: Denies chest pain, palpitations, or edema. Reports left anterior chest wall pain RESPIRATORY: Denies cough or dyspnea. SKIN: Denies lacerations, abrasions MUSCULOSKELETAL: Reports left anterior chest wall pain, tenderness. Reports tenderness with range of motion to the fifth digit of left hand, denies tenderness to palpation. NEUROLOGIC: Denies numbness, weakness, or headache. All systems reviewed & are unremarkable except as noted in HPI and below PMFSH Past Medical History Medical History Anxiety Cardiomyopathy Unclear etiology, possibly or due to history of cocaine use. Echocardiogram in 2020 was completely normal, per patient report. Depression Mitral valve prolapse Nephrolithiasis Surgical History Surgical History History of endometrial ablation History of salpingectomy History of tonsillectomy and adenoidectomy Family History Family History Father Amyotrophic lateral sclerosis Cancer of kidney Social History Social History Social History: The patient is currently staying with her daughter in [place]. Not employed at this time. Social smoker, occasionally vapes. Consumes alcohol in moderation. History of recreational cocaine use. She designates her sister, Ayleen Lopez, as her surrogate decision maker. Code status: Full code. Drinks per week: 1 Gender identity (if verbalized by the patient): Female Spiritual care concerns: No Comments At time of signature, agree with nursing past medical, surgical, social and family history. There is no relevant family history pertinent to the presenting complaint Exam Narrative: GENERAL: Well-appearing, well-nourished, and in no acute distress. HEAD: Normocephalic, atraumatic. EYES: PERRLA, sclera clear ENT: Mucous membranes moist. NECK: Supple. CHEST: No respiratory distress. Clear to auscultation. No bony deformities, no asymmetry. Speaks in full sentences. Mild chest wall tenderness to the left anterior 3rd-4th rib area, very mild edema, no ecchymosis or erythema noted HEART: Regular rate and rhythm. No murmur heard. Normal peripheral pulses. EXTREMITIES: Fifth digit of left hand has grossly normal range of motion, no edema, normal strength and sensation, no tenderness to palpation. SKIN: Warm, dry, no visible rash. Left chest wall has no erythema, tenderness, warmth, open skin. Fifth digit of left hand skin intact without erythema or edema NEURO: Alert and oriented x3. PSYCH: Normal mood and affect Course Course Emergency Course: Patient
[2020-12-06 12:14] VITALS: BP 125/94; PULSE 103; RESP 16; TEMP 36.5; O2SAT 100
--- NOTE | 2020-12-06 12:38 | ECG_ITS ---
Measurements Intervals Roxie Rate: 94 P: 67 UT: 115 QRS: 6 QRSD: 96 T: 58 QT: 375 QTc: 471 Interpretive Statements SINUS RHYTHM WITH SHORT UT INTERVAL INCOMPLETE RIGHT BUNDLE BRANCH BLOCK BORDERLINE ECG Electronically Signed On 12-06-2020 15:20:00 CDT by Artie Tatum D.O.
== END 2020-12-06 12:49 | disposition home or self-care (01) ==
PROVIDERS: Emergency Provider Nurse Practitioner
DX: S20.212A Contusion of left front wall of thorax, initial encounter (principal); W50.1XXA Accidental kick by another person, initial encounter; Y93.71 Activity, boxing
CPT/HCPCS: 71101; 93005; 99213; G0463

== ENCOUNTER 2021-05-06 13:35 | Emergency (ER) | payer OTHER, SELFPAY ==
--- NOTE | ~2021-05-06 | XR_ITS ---
EXAMINATION: XR foot RT min 3V DATE: 05/06/2021 14:26 INDICATION: Right foot swelling. TECHNIQUE: 4 views of right foot were obtained. COMPARISON: None. FINDINGS: Bone alignment is normal. No fracture. Joint spaces are normal. There is an enthesophyte at plantar aspect of calcaneal tuberosity. IMPRESSION: 1. No fracture. Reviewed, dictated and finalized at location A. ER SKIDDER IMPRESSION: 1. No fracture.
[2021-05-06 13:46] VITALS: BP 102/78; PULSE 76; RESP 16; TEMP 37.1; O2SAT 98
--- NOTE | 2021-05-06 14:43 | ED.LOWEXIN ---
HPI - Extremity Injury (Lower) General Chief Complaint: Extremity Injury, Lower Stated Complaint: Foot Pain Source: patient, RN notes reviewed and old records reviewed Mode of arrival: ambulatory Limitations: no limitations History of Present Illness HPI Narrative: 46-year-old female presents to [facility] with complaints of swelling and discomfort to the dorsal aspect of her right foot for 1 week duration. Patient denies any known injury to her foot states she recently went back to work and is constantly on her feet. Patient also states that she has had 3 week duration of sinus congestion and yellow sinus drainage.Patient reports that she has been taking Ibuprofen, Mucinex and Benadryl for her symptoms with out resolution of symptoms. Patient has had COVID and Flu shot did have COVID in January of 2021. complaint: foot injury (No known injury right dorsal foot) Onset (ago): week(s) (1) Injury: Right: foot (Dorsal aspect) Severity scale (1-10): 8 Exacerbating factors: weight bearing Associated symptoms: swelling and other (painful weight bearing) Other symptoms: other (sinus congestion with drainage for 3 weeks) Treatments prior to arrival: cold therapy, NSAIDS and other (Mucinex and Benadryl) Related Data Home Medications Medication Instructions Recorded Confirmed sertraline [Zoloft] 150 mg PO DAILY 09/16/20 05/06/21 Allergies Allergy/AdvReac Type Severity Reaction Status Date / Time No Known Allergies Allergy Verified 05/06/21 13:57 Review of Systems Review of Systems: CONSTITUTIONAL: Denies fever, chills, or sweats. EYES: Denies visual changes, redness, or discharge. ENT: Positive for rhinorrhea, congestion,no sore throat, or otalgia. CARDIOVASCULAR: Denies chest pain, palpitations, or edema. RESPIRATORY: Denies cough or dyspnea. GASTROINTESTINAL: Denies abdominal pain, nausea, vomiting, or diarrhea. GENITOURINARY: Denies dysuria or hematuria. SKIN: Denies rash or itching. MUSCULOSKELETAL: Denies back pain,positive for pain to right foot dorsal aspect, or myalgia. NEUROLOGIC: Denies headache, numbness, or weakness. PSYCHIATRIC: Positive for history of anxiety or depression. All systems reviewed & are unremarkable except as noted in HPI and below PMFSH Past Medical History Medical History Anxiety Cardiomyopathy Unclear etiology, possibly or due to history of cocaine use. Echocardiogram in 2020 was completely normal, per patient report. Depression Mitral valve prolapse Nephrolithiasis Surgical History Surgical History History of endometrial ablation History of salpingectomy History of tonsillectomy and adenoidectomy Family History Family History Father Amyotrophic lateral sclerosis Cancer of kidney Social History Social History (Updated 05/06/21 @ 21:20 by Ivanna Polk NP) Social History: The patient is currently staying with her daughter in [place]. Not employed at this time. Social smoker, occasionally vapes. Consumes alcohol in moderation. History of recreational cocaine use. She designates her sister, Ayleen Lopez, as her surrogate decision maker. Code status: Full code. Additional smoking assessment comments: former social smoker no vaping Alcohol intake: former Drinks per week: 1 Alcohol use details: no alcohol use since November of 2020 Substance use: former Last use: used Cocaine previously recreational no use since July 2020 Living arrangements: with family Gender identity (if verbalized by the patient): Female Spiritual care concerns: No Exam Narrative: GENERAL: Well-appearing, well-nourished, and in no acute distress. HEAD: Normocephalic, atraumatic. EYES: PERRLA and EOMI. ENT: Nares red with clear rhinorrhea no epistaxis.sinus pressure to face and forehead 3 week duration
== END 2021-05-06 15:18 | disposition home or self-care (01) ==
PROVIDERS: Emergency Provider Registered Nurse
DX: M79.671 Pain in right foot (principal); J01.40 Acute pansinusitis, unspecified; I34.1 Nonrheumatic mitral (valve) prolapse; F41.9 Anxiety disorder, unspecified; F32.A Depression, unspecified
CPT/HCPCS: 73630; 99213; G0463

== ENCOUNTER 2021-10-23 15:27 | Emergency (ER) | payer OTHER, SELFPAY ==
--- NOTE | ~2021-10-23 | XR_ITS ---
XR foot LT min 3V DATE: 10/23/2021 15:43 INDICATION: Swelling TECHNIQUE: 3 views COMPARISON: None FINDINGS: Mild plantar calcaneal enthesopathy without associated erosive change or periostitis. No fracture or dislocation, periosteal reaction or bone destruction. No erosive change. Joint spaces are relatively preserved. IMPRESSION: Mild plantar calcaneal enthesopathy Reviewed, dictated and finalized at location B.
--- NOTE | ~2021-10-23 | XR_ITS ---
XR ankle LT min 3V DATE: 10/23/2021 15:43 INDICATION: Swelling TECHNIQUE: 3 views COMPARISON: None FINDINGS: Mild plantar calcaneal enthesopathy. No fracture or dislocation of the ankle or disruption of the ankle mortise. IMPRESSION: Mild plantar calcaneal enthesopathy Reviewed, dictated and finalized at location B.
--- NOTE | 2021-10-23 16:12 | ED.GENADULT ---
HPI - General Adult General Chief complaint: Extremity Injury, Lower Stated complaint: Left foot injury Source: patient Mode of arrival: ambulatory Limitations: no limitations History of Present Illness HPI narrative: Patient presents for evaluation of left foot pain for the last 3 weeks. She indicates she noticed her symptoms while walking and pain has persisted since that time. She states a few months back she was experiencing left foot pain and had an x ray performed which was negative. She later went to [facility] and had a CT scan performed. She states she was diagnosed with a foot fracture. She states her pain is now constant, 5 out of 10 in severity, with radiation to the left ankle. She has tried taking [id number] agents without improvement. Pain is worse with weight bearing and movement. She states she has not tolerated tramadol in the past. She states hydrocodone has helped in the past with pain. No additional complaints or concerns. Related Data Home Medications Medication Instructions Recorded Confirmed sertraline 100 mg tablet (Zoloft) 150 mg PO DAILY 09/16/20 10/23/21 Allergies Allergy/AdvReac Type Severity Reaction Status Date / Time No Known Allergies Allergy Verified 10/23/21 15:47 Review of Systems Review of Systems: CONSTITUTIONAL: Denies fever, chills, or sweats. EYES: Denies visual changes, redness, or discharge. ENT: Denies rhinorrhea, congestion, sore throat, or otalgia. CARDIOVASCULAR: Denies chest pain, palpitations, or edema. RESPIRATORY: Denies cough or dyspnea. GASTROINTESTINAL: Denies abdominal pain, nausea, vomiting, or diarrhea. GENITOURINARY: Denies dysuria or hematuria. SKIN: Denies rash or itching. MUSCULOSKELETAL: Reports left foot pain with radiation to left ankle. NEUROLOGIC: Denies headache, numbness, dizziness, or weakness. PSYCHIATRIC: Denies anxiety or depression. [facility] Past Medical History Medical History Anxiety Cardiomyopathy Unclear etiology, possibly or due to history of cocaine use. Echocardiogram in 2020 was completely normal, per patient report. Depression History of foot fracture Mitral valve prolapse Nephrolithiasis Surgical History Surgical History History of endometrial ablation History of salpingectomy History of tonsillectomy and adenoidectomy Family History Family History Father Amyotrophic lateral sclerosis Cancer of kidney Social History Social History Social History: The patient is currently staying with her daughter in [place]. Not employed at this time. Social smoker, occasionally vapes. Consumes alcohol in moderation. History of recreational cocaine use. She designates her sister, Ayleen Lopez, as her surrogate decision maker. Code status: Full code. Additional smoking assessment comments: former social smoker no vaping Alcohol intake: former Drinks per week: 1 Alcohol use details: no alcohol use since November of 2020 Substance use: former Last use: used Cocaine previously recreational no use since July 2020 Gender identity (if verbalized by the patient): Female Spiritual care concerns: No Exam Narrative: GENERAL: Well-appearing, well-nourished, and in no acute distress. HEAD: Normocephalic, atraumatic. EYES: PERRLA and EOMI. ENT: Nares clear, no rhinorrhea or epistaxis. Mucous membranes moist. Oropharynx without tonsillar hypertrophy exudate or other lesions. Bilateral TMs pearly wilson nonbulging NECK: Supple. No adenopathy or masses. No carotid bruits or JVD CHEST: Clear to auscultation. No respiratory distress. No wheezes rales or rhonchi HEART: Regular rate and rhythm. No murmur heard. Normal peripheral pulses. ABDOMEN: Soft, n
== END 2021-10-23 16:17 | disposition home or self-care (01) ==
PROVIDERS: Emergency Provider Nurse Practitioner
DX: M79.672 Pain in left foot (principal); M77.8 Other enthesopathies, not elsewhere classified; Z87.81 Personal history of (healed) traumatic fracture; F41.9 Anxiety disorder, unspecified; F32.A Depression, unspecified; I42.9 Cardiomyopathy, unspecified; I34.1 Nonrheumatic mitral (valve) prolapse
CPT/HCPCS: 73610; 73630; 99214; G0463

== ENCOUNTER 2022-01-17 14:19 | Emergency (ER) | payer OTHER, SELFPAY ==
--- NOTE | ~2022-01-17 | XR_ITS ---
[XR ribs RT 2V ] INDICATION: Right rib pain after fall TECHNIQUE: Frontal projection of the upper right ribs, frontal projection of the lower right ribs, ob lique projection of all the right ribs, frontal inspiratory chest x-ray for interpretation. FINDINGS: There are no displaced rib fractures identified. There are no soft tissue abnormality see n. The lungs are clear. IMPRESSION: 1:No acute displaced rib fractures. Reviewed, dictated and finalized at location B.
--- NOTE | ~2022-01-17 | XR_ITS ---
XR sternum min 2V 01/17/2022 14:54 INDICATION: Status post fall. Sternal pain. PROCEDURE: 2 views of the sternum COMPARISON: No prior studies for comparison. FINDINGS: Fracture, dislocation or subluxation is not identified. The soft tissues appear within norm al limits. No foreign bodies are identified. IMPRESSION: 1: No acute abnormality of the sternum identified. Reviewed, dictated and finalized at location B.
--- NOTE | 2022-01-17 14:22 | ED.UPPEXIN ---
HPI - Extremity Injury (Upper) General Chief Complaint: Fall Stated Complaint: right arm and ribs injury Time Seen by Provider: 01/17/22 14:23 Source: patient and RN notes reviewed History of Present Illness HPI narrative: patient is a 46-year-old female who presents to the Urgent Care with complaints as pain mid sternal, right arm pain, and bilateral feet pain. Patient states that 2 days ago she tripped over a parking block at work and the rain slamming the tops of her feet on a concrete block and falling onto her chest and right arm. Patient states she has been taking Tylenol and ibuprofen for the pain. States that she is having no issues with the top of her feet but is concerned about possible rib fracture. Patient denies any shortness of breath. Denies of hitting her head or any loss of consciousness. No other acute complaints. No acute distress noted. Patient aware of the plan of care. Some parts of this dictation were generated by voice recognition software and may contain typographical and/or grammatical inaccuracies. Related Data Home Medications Medication Instructions Recorded Confirmed sertraline 100 mg tablet (Zoloft) 150 mg PO DAILY 09/16/20 10/23/21 amoxicillin 875 mg-potassium 1 tablet DIRECTED 01/17/22 01/17/22 clavulanate 125 mg tablet Allergies Allergy/AdvReac Type Severity Reaction Status Date / Time No Known Allergies Allergy Verified 10/23/21 15:47 Review of Systems Review of Systems: CONSTITUTIONAL: Denies fever, chills, or sweats. EYES: Denies visual changes, redness, or discharge. ENT: Denies rhinorrhea, congestion, sore throat, or otalgia. CARDIOVASCULAR: Denies chest pain, palpitations, or edema. RESPIRATORY: Denies cough or dyspnea. GASTROINTESTINAL: Denies abdominal pain, nausea, vomiting, or diarrhea. GENITOURINARY: Denies dysuria or hematuria. SKIN: Denies rash or itching. MUSCULOSKELETAL: Reports of right arm pain NEUROLOGIC: Denies headache, numbness, or weakness. All other systems reviewed are negative, except as documented in HPI. [facility] Past Medical History Medical History Anxiety Cardiomyopathy Unclear etiology, possibly or due to history of cocaine use. Echocardiogram in 2020 was completely normal, per patient report. Depression History of foot fracture Mitral valve prolapse Nephrolithiasis Surgical History Surgical History History of endometrial ablation History of salpingectomy History of tonsillectomy and adenoidectomy Family History Family History Father Amyotrophic lateral sclerosis Cancer of kidney Social History Social History Social History: The patient is currently staying with her daughter in [place]. Not employed at this time. Social smoker, occasionally vapes. Consumes alcohol in moderation. History of recreational cocaine use. She designates her sister, Ayleen Lopez, as her surrogate decision maker. Code status: Full code. Additional smoking assessment comments: former social smoker no vaping Alcohol intake: former Drinks per week: 1 Alcohol use details: no alcohol use since November of 2020 Substance use: former Last use: used Cocaine previously recreational no use since July 2020 Gender identity (if verbalized by the patient): Female Spiritual care concerns: No Exam Narrative: GENERAL: This is a well-nourished, well-developed patient, in no apparent distress. HEAD: normocephalic, atraumatic. EYES: PERRL. Sclera clear/white. Vision is grossly intact. EARS: External ears normal, auditory canals clear and without drainage, TMs normal without perforation. Hearing grossly intact. NOSE: External nose normal with no obvious nasal discharge, nares without redness
[2022-01-17 14:24] VITALS: BP 109/64; PULSE 60; RESP 14; TEMP 36.7; O2SAT 100
== END 2022-01-17 15:19 | disposition home or self-care (01) ==
PROVIDERS: Emergency Provider Nurse Practitioner Family
DX: S20.211A Contusion of right front wall of thorax, initial encounter (principal); W18.09XA Striking against other object with subsequent fall, initial encounter; F41.9 Anxiety disorder, unspecified; F32.A Depression, unspecified; I34.1 Nonrheumatic mitral (valve) prolapse
CPT/HCPCS: 71100; 71120; 99213; G0463

== ENCOUNTER 2022-06-16 11:45 | Emergency (ER) | payer OTHER, SELFPAY ==
[2022-06-16 11:48] VITALS: BP 104/76; PULSE 95; RESP 16; TEMP 36.7; O2SAT 98
--- NOTE | 2022-06-16 12:41 | ED.GENADULT ---
HPI - General Adult General Chief complaint: Upper Respiratory Infection Stated complaint: chest congestion/ears Source: patient Mode of arrival: ambulatory Limitations: no limitations History of Present Illness HPI narrative: Patient presents for evaluation of cough for the last 5 days. Cough is productive of clear sputum. She denies any shortness of breath. She reports bilateral ear pain, right greater than left, headache and mild sore throat. No nausea, vomiting, diarrhea. 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 She went to [facility] urgent care 2 days ago had a negative COVID test. She did have COVID last year. She tried taking ibuprofen for symptoms. She does not smoke. Related Data Home Medications Medication Instructions Recorded Confirmed sertraline 100 mg tablet (Zoloft) 150 mg PO DAILY 09/16/20 06/16/22 Allergies Allergy/AdvReac Type Severity Reaction Status Date / Time No Known Allergies Allergy Verified 06/16/22 11:57 Review of Systems Review of Systems: CONSTITUTIONAL: Denies fever, chills, or sweats. EYES: Denies visual changes, redness, or discharge. ENT: Reports bilateral ear pain, right greater than left. Reports sore throat. Denies rhinorrhea CARDIOVASCULAR: Denies chest pain, palpitations, or edema. RESPIRATORY: Reports productive cough. Denies shortness of breath. GASTROINTESTINAL: Denies abdominal pain, nausea, vomiting, or diarrhea. GENITOURINARY: Denies dysuria or hematuria. SKIN: Denies rash or itching. MUSCULOSKELETAL: Denies back pain, joint pain, or myalgia. NEUROLOGIC: Reports headache. Denies numbness, dizziness, or weakness. PSYCHIATRIC: Denies anxiety or depression. [facility] Past Medical History Medical History Anxiety Cardiomyopathy Unclear etiology, possibly or due to history of cocaine use. Echocardiogram in 2020 was completely normal, per patient report. Depression History of foot fracture Mitral valve prolapse Nephrolithiasis Surgical History Surgical History History of endometrial ablation History of salpingectomy History of tonsillectomy and adenoidectomy Family History Family History Father Amyotrophic lateral sclerosis Cancer of kidney Social History Social History Social History: The patient is currently staying with her daughter in [place]. Not employed at this time. Social smoker, occasionally vapes. Consumes alcohol in moderation. History of recreational cocaine use. She designates her sister, Ayleen Lopez, as her surrogate decision maker. Code status: Full code. Additional smoking assessment comments: former social smoker no vaping Alcohol intake: former Drinks per week: 1 Alcohol use details: no alcohol use since November of 2020 Substance use: former Last use: used Cocaine previously recreational no use since July 2020 Living arrangements: with family Gender identity (if verbalized by the patient): Female Spiritual care concerns: No Exam Narrative: GENERAL: Well-appearing, well-nourished, and in no acute distress. HEAD: Normocephalic, atraumatic. EYES: PERRLA and EOMI. ENT: Nares clear, no rhinorrhea or epistaxis. Mucous membranes moist. Oropharynx without tonsillar hypertrophy exudate or other lesions. Right tympanic membrane erythema with middle ear effusion present NECK: Supple. No adenopathy or masses. No carotid bruits or JVD CHEST: Clear to auscultation. No respiratory distress. No wheezes rales or rhonchi HEART: Regular rate and rhythm. No murmur heard. Normal peripheral pulses. ABDOMEN: Soft, nontender, nondistended, normal active bowel sounds. EXTREMITIES: Normal range of motion. No edema. SKIN: Warm, dry, no rash. NE
== END 2022-06-16 12:48 | disposition home or self-care (01) ==
PROVIDERS: Emergency Provider Nurse Practitioner
DX: H66.90 Otitis media, unspecified, unspecified ear (principal); F41.9 Anxiety disorder, unspecified; F32.A Depression, unspecified; Z87.891 Personal history of nicotine dependence; Z20.822 Contact with and (suspected) exposure to COVID-19
CPT/HCPCS: 87426; 87804; 99213; C9803; G0463

== ENCOUNTER 2022-11-27 16:49 | Emergency (ER) | payer OTHER, SELFPAY ==
--- NOTE | ~2022-11-27 | XR_ITS ---
EXAMINATION: XR ribs LT 2V DATE: 11/27/2022 17:26 INDICATION: Left rib pain post fall TECHNIQUE: 3 views of the left ribs were obtained. COMPARISON: Radiographs dated 01/17/2022 and 09/16/2020 FINDINGS: No rib fractures identified. No focal airspace opacities, pulmonary edema, pleural effusion or pneumo thorax. Mild thoracolumbar levocurvature. IMPRESSION: 1. No rib fracture or acute cardiopulmonary disease. Reviewed, dictated and finalized at location A.
[2022-11-27 16:55] VITALS: BP 109/67; PULSE 85; RESP 20; TEMP 36.7; O2SAT 100
--- NOTE | 2022-11-27 17:11 | ED.FALL ---
HPI - Fall General Chief Complaint: Fall Stated Complaint: Left side rib pain Time Seen by Provider: 11/27/22 17:00 Source: patient Mode of arrival: ambulatory Limitations: no limitations History of Present Illness HPI Narrative: Edith is a 47-year-old female patient presenting to clinic today with complaints of left-sided rib pain after falling a few days ago in her living room. She reports she tripped and fell on her butt for. Is having some pain to the left ribs with movement and with taking take inspirations. She is concerned that she may have fractured a rib or bruised her ribs. Related Data Home Medications Medication Instructions Recorded Confirmed No Home Medications 11/27/22 11/27/22 Allergies Allergy/AdvReac Type Severity Reaction Status Date / Time No Known Allergies Allergy Verified 11/27/22 16:52 Review of Systems Review of Systems: Pertinent positives per HPI. Patient denies any fever, chills, rash, headache, visual changes, dizziness, cough, runny nose, sore throat, shortness of breath, chest pain, palpitations, nausea, vomiting, diarrhea, constipation, abdominal pain, or any urinary issues. [facility] Past Medical History Medical History Anxiety Cardiomyopathy Unclear etiology, possibly or due to history of cocaine use. Echocardiogram in 2020 was completely normal, per patient report. Depression History of foot fracture Mitral valve prolapse Nephrolithiasis Surgical History Surgical History History of endometrial ablation History of salpingectomy History of tonsillectomy and adenoidectomy Family History Family History Father Amyotrophic lateral sclerosis Cancer of kidney Social History Social History Social History: The patient is currently staying with her daughter in [place]. Not employed at this time. Social smoker, occasionally vapes. Consumes alcohol in moderation. History of recreational cocaine use. She designates her sister, Ayleen Lopez, as her surrogate decision maker. Code status: Full code. Additional smoking assessment comments: former social smoker no vaping Alcohol intake: former Drinks per week: 1 Alcohol use details: no alcohol use since November of 2020 Substance use: former Last use: used Cocaine previously recreational no use since July 2020 Living arrangements: with family Gender identity (if verbalized by the patient): Female Spiritual care concerns: No Comments At the time of my signature, I reviewed and agree with the nursing past medical, surgical, social, and family history. There is no relevant family history pertinent to the patient complaint. Exam Narrative: General: Well-developed, well nourished, in no apparent distress Head: Normocephalic, atraumatic. Chest wall: No bruising or swelling noted, tenderness to palpation over the left lower anterior lateral ribs. Cardio: Regular rate and rhythm, s1 and s2 normal, no murmur appreciated. Resp: Clear to auscultation bilaterally, no rhonchi, rales, wheezing or rubs. Extremities: No deformity, no edema, no cyanosis, capillary refill less than 2 seconds, peripheral pulses palpable and strong. Integumentary: [place], warm, and dry, intact without lesion, no rashes. Course Course Emergency Course: Portions of this record may have been created with voice recognition software. Level of Care: Express Care Visit Vital Signs Vital signs: Vital Signs Temperature 36.7 C 11/27/22 16:55 Pulse Rate 85 11/27/22 16:55 Respiratory Rate 20 11/27/22 16:55 Blood Pressure 109/67 11/27/22 16:55 Pulse Oximetry 100 11/27/22 16:55 Oxygen Delivery Room Air 11/27/22 16:55 Temperature 36.7 C 11/27/22 16:55 Pulse
== END 2022-11-27 17:47 | disposition home or self-care (01) ==
PROVIDERS: Emergency Provider Nurse Practitioner Family; PCP Nurse Practitioner Family
DX: S20.212A Contusion of left front wall of thorax, initial encounter (principal); W01.0XXA Fall on same level from slipping, tripping and stumbling without subsequent striking against object, initial encounter; I42.9 Cardiomyopathy, unspecified; I34.1 Nonrheumatic mitral (valve) prolapse
CPT/HCPCS: 71100; 99213; G0463